=== PATIENT | male | born 1955 | race Caucasian/White ===

== ENCOUNTER 2025-02-23 11:41 | Day surgery (SDC) | payer MEDICARE, SELFPAY ==
--- NOTE | 2025-02-18 07:10 | EXP.HP ---
History of Present Illness *Admission Date: 02/23/25 *History of present illness: Mr. Dale is a 69-year-old gentleman who is here for diagnostic EGD and he primarily reports recurrent dysphagia. He also has some new hoarseness. The patient does have chronic GERD controlled with omeprazole. The patient reports no weight loss or abdominal pain. 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 He has had esophageal dilation in November 2019 and again in December 2022. 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 He also has a personal history of adenomatous colon polyps. His colonoscopy in 2008 revealed 3 polyps (tubular adenomas x 3) which were removed. His colonoscopy in September 2011 was normal. His colonoscopy in July 2016 revealed 4 polyps (tubular adenomas x 4) which were removed. His colonoscopy in November 2019 revealed 2 polyps (tubular adenomas x 2) which were removed. His last colonoscopy in December 2022 revealed a single polyp (tubular adenoma) which was removed. He did have some internal hemorrhoids. He does have some mild chronic ileitis. The patient recently has had a trouble some external hemorrhoid. He did switch from Konsyl powder to fiber pills. The examination is deemed medically necessary for diagnostic/therapeutic EGD. The patient has been seen, interviewed and examined prior to the procedure by both myself and the anesthesia provider. [facility] Disclaimer: The information contained in this section may have been updated after the patient was seen, as this information can be updated by other users. Medical History History of squamous cell carcinoma Hyperlipidemia BPH (benign prostatic hyperplasia) Type II diabetes mellitus Hypertension GERD (gastroesophageal reflux disease) Surgical History History of hernia surgery History of back surgery History of craniotomy History of cholecystectomy History of knee surgery History of cataract surgery Family History Other Family history non-contributory Social History Smoking Status: Former smoker alcohol intake: current alcohol intake frequency: holidays/special occasions only substance use type: denies use current occupational status: retired Travel in the last 8 weeks?: None Have you lived/traveled outside [place] in past 30 days?: No Contact w/someone who lives/traveled outside [place] past 30 days?: No Exposure to someone with infectious disease in past 14 days?: No Do you have a fever (greater than 100.4 F or 38 C)?: No Have you tested positive for COVID-19?: No Exposed to someone with COVID-19 in past 14 days?: No Do you have a sore throat?: No Do you have a cough?: No Do you have any weakness?: No Do you have any diarrhea?: No Are you experiencing any unusual bleeding?: No Do you have any muscle aches/pain?: No Do you have any abdominal pain?: No Are you experiencing loss of taste or smell?: No Review of Systems Review of Systems Review of systems (narrative): Negative *Cardiovascular Comments: Negative *Gastrointestinal Comments: Negative *Genitourinary Comments: Negative *Musculoskeletal Comments: Negative *Neurologic Comments: Negative Meds Home Medications and Allergies Home Medications ?Medication ?Instructions ?Recorded ?Confirmed ?Type aspirin 81 mg tablet,delayed 81 mg PO DAILY 12/17/24 12/17/24 History release (Adult Low Dose Aspirin) empagliflozin 10 mg tablet 10 mg PO DAILY 12/17/24 12/17/24 History (Jardiance) fexofenadine 60 mg tablet (Yanci 60 mg PO DAILY 12/17/24 12/17/24 History Allergy) glimepiride 1 mg tablet 1 mg PO DAILY 12/17/24 12/17/24 History losartan 50 mg tablet 25 mg PO DAILY 12/17/24 12/17/24 History montelukast 10 mg tablet 10 mg PO DAILY 12/17/24 12/17/24 History multivitamin 1 tab PO DAILY 12/17/24 12/17/24 History omeprazole 40 mg capsule,delayed 40 mg PO DAILY 12/17/24 12/17/24 History release pravastatin 80 mg tablet 80 mg PO HS 12/17/24 12/17/24 History psyllium husk 0.4 gram capsule 0.8 g PO BID 12/17/24 12/17/24 History (Daily Fiber) sildenafil (pulm.hypertension) 20 20 mg PO DAILY 12/17/24 12/17/24 History mg tablet tamsulosin 0.4 mg capsule 0.4 mg PO BID 12/17/24 12/17/24 History New Prescriptions to Start Prescriptions: Allergies Allergy/AdvReac Type Severity Reaction Status Date / Time No Known Allergies Allergy Verified 02/20/25 13:52 Exam *Routine HEENT Exam Head: Present normocephalic Eye: Present EOMI and PERRL ENT: Present mucous membranes moist *Routine Neck Exam Neck: Present supple *Routine Respiratory Exam Respiratory: Present CTA bilaterally *Routine Cardiovascular Exam Cardiovascular: Present RRR *Routine Abdominal Exam Abdominal: Present soft and normoactive bowel sounds; Absent tenderness *Routine Rectal Exam Rectal:: deferred *Routine Genitalia Exam Genitalia:: deferred *Routine Extremities Exam Extremities: Absent cyanosis, clubbing or edema *Routine Skin Exam Skin: Present warm; Absent rash *Routine Neurological Exam Neurological: Present alert and oriented X3 Assessment and Plan *Assessment and plan (1) Dysphagia: Status: Acute Category: Medical Code(s): R13.10 - Dysphagia, unspecified (2) Chronic GERD: Status: Acute Category: Medical Code(s): K21.9 - Gastro-esophageal reflux disease without esophagitis (3) History of squamous cell carcinoma: Problem Comment: squamous cell left vocal cord Status: Acute Category: Medical Code(s): Z85.89 - Personal history of malignant neoplasm of other organs and systems (4) Radiation esophagitis: Status: Acute Category: Medical Code(s): K20.80 - Other esophagitis without bleeding Plan A/P: 1. 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 The patient will be anesthetized/sedated using MAC sedation. The patient has been seen and examined. Cardiac and lung assessment prior to the examination is stable. Proceed with planned diagnostic/therapeutic EGD.
[2025-02-20 14:14] VITALS: BMI 29.2
--- NOTE | 2025-02-23 06:48 | P.PCN_ITS ---
[facility] Procedure Note Date: 02/23/25 Time: 13:40 Procedure Note:: Upper Endoscopy Procedure Report: Esophagogastroduodenoscopy with cold biopsies and TTS balloon dilation Endoscopost: Jefferson Reynolds II, MD Referring Physician: Velma Osborne MD Date of Procedure: February 23, 2025 Equipment: Olympus GIF-1100 standard upper endoscope Sedation: MAC sedation Indications: Mr. Dale is a 69-year-old gentleman who is here for diagnostic EGD and he primarily reports recurrent dysphagia. He also has some new hoarseness. The patient does have chronic GERD controlled with omeprazole. The patient reports no weight loss or abdominal pain. 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 He has had esophageal dilation in November 2019 and again in December 2022. 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 He also has a personal history of adenomatous colon polyps. His colonoscopy in 2008 revealed 3 polyps (tubular adenomas x 3) which were removed. His colonoscopy in September 2011 was normal. His colonoscopy in July 2016 revealed 4 polyps (tubular adenomas x 4) which were removed. His colonoscopy in November 2019 revealed 2 polyps (tubular adenomas x 2) which were removed. His last colonoscopy in December 2022 revealed a single polyp (tubular adenoma) which was removed. He did have some internal hemorrhoids. He does have some mild chronic ileitis. The patient recently has had a trouble some external hemorrhoid. He did switch from Konsyl powder to fiber pills. The examination is deemed medically necessary for diagnostic/therapeutic EGD. Procedure: Prior to the procedure, a history and physical exam was performed, and patient's medications and allergies were reviewed. The risks, benefits and alternatives of the sedation and procedure were discussed with the patient. All questions were answered and informed consent was obtained. The patient was brought to the procedure room. Patient identification and proposed procedure were verified by the physician and the nurse. The patient was placed in a left lateral decubitus position and the scope was passed under direct vision. Throughout the procedure, the patient's blood pressure, pulse, and oxygen saturations were monitored continuously. The upper GI endoscopy was accomplished without difficulty. The patient tolerated the procedure well. Findings: The scope was passed directly into the upper esophagus and advanced to the third portion of the duodenum. The post bulbar duodenum and duodenal bulb were normal with normal mucosa and conniventes. 2 cold biopsies were taken from the second portion of the duodenum for the disaccharidase assay. The scope was withdrawn through a normal duodenal bulb and pylorus into the stomach. There was bile reflux with mild linear reactive gastropathy of the antrum. There was also some chronic gastritis of the body and fundus of the stomach. Cold biopsies were taken along the lesser curvature and body of the stomach to rule out H. pylori. Upon retroflexion there was a very small sliding 1 to 2 cm hiatal hernia. The scope was then withdrawn into the esophagus. There was no evidence of reflux esophagitis or Wren's. There were tertiary contractions and evidence of moderate esophageal dysmotility. There was also a proximal esophageal inlet patch. The inlet patch was ablated/coagulated using APC ablation. The remainder of the esophagus and mucosa were normal. The entire esophagus was dilated to 60 [place]/20 mm with a TTS hydrostatic balloon. There was minimal resistance. The posterior pharynx and vocal cords were inspected. The true and false vocal cords were slightly coarsened/thickened but otherwise normal. Impression: 1. Proximal esophageal inlet patch status post APC ablation 2. Nonerosive GERD with moderate esophageal dysmotility and very small sliding 1 to 2 cm hiatal hernia status post dilation to 20 mm 3. Bile reflux with mild linear reactive gastropathy and mild chronic gastritis Plan: I will follow-up the biopsies and disaccharidase assay and discuss the findings with the patient and family.
[2025-02-23 12:37] VITALS: BP 139/78; PULSE 97; RESP 18; TEMP 36.3; O2SAT 97
[2025-02-23] MEDS: LACTATED RINGERS 1000ML 1,000 ML 50 ML IV (12:50)
[2025-02-23 12:54] LABS: POC Glucose,Bedside 139 gm/dL (70-110)
[2025-02-23 13:39] VITALS: BP 123/65; PULSE 90; RESP 18; TEMP 36.1; O2SAT 94
[2025-02-23 13:49] VITALS: BP 118/61; PULSE 86; O2SAT 96
[2025-02-23 13:59] VITALS: BP 127/76; PULSE 80; O2SAT 96
[2025-02-23 14:09] VITALS: BP 125/61; PULSE 82; O2SAT 95
[2025-02-27 15:01] LABS: Interpretation Notes (.); Lactase 22.65 (>/= 14.0); Maltase 152.23 (>/= 110.0); Palatinase 10.27 (>/= 8.5); Reference Notes (.); Sucrase 34.76 (>/= 25.0)
== END 2025-02-23 14:09 | disposition home or self-care (01) ==
PROVIDERS: PCP Family Medicine; Visit Provider Internal Medicine Gastroenterology
PROC: 0DJ08ZZ Inspection of Upper Intestinal Tract, Via Natural or Artificial Opening Endoscopic (ICD-10-PCS; CPT 43239; principal; 2025-02-23 13:30)
DX: K52.9 Noninfective gastroenteritis and colitis, unspecified (principal); K31.89 Other diseases of stomach and duodenum; K44.9 Diaphragmatic hernia without obstruction or gangrene; K22.4 Dyskinesia of esophagus; K21.9 Gastro-esophageal reflux disease without esophagitis; K20.80 Other esophagitis without bleeding; I10 Essential (primary) hypertension; E11.9 Type 2 diabetes mellitus without complications; E78.5 Hyperlipidemia, unspecified; Z85.89 Personal history of malignant neoplasm of other organs and systems; Z79.82 Long term (current) use of aspirin; Z79.84 Long term (current) use of oral hypoglycemic drugs; Z86.0101 Personal history of adenomatous and serrated colon polyps
CPT/HCPCS: 43239; 43249; 82657; 82962; 88305; C1726; C2618; J2003; J2704; J7120